=== PATIENT | male | born 1965 | race Caucasian/White ===

== ENCOUNTER 2017-05-20 07:45 | Day surgery (SDC) | payer BC, OTHER ==
[2017-05-16 14:29] VITALS: BMI 40.1
[2017-05-20] MEDS ORDERED: PROPOFOL 20 ML ONE ×2 (07:56)
[2017-05-20 10:22] VITALS: TEMP 98
[2017-05-20 10:24] VITALS: BP 110/65; PULSE 58
== END 2017-05-20 10:25 | disposition home or self-care (01) ==
LOC: FASU-ENDO 07:45 → EDBD 09:00 → FASU-ENDO 10:25
PROVIDERS: ATTEND Internal Medicine Gastroenterology
PROC: 0DJD8ZZ Inspection of Lower Intestinal Tract, Via Natural or Artificial Opening Endoscopic (ICD-10-PCS; principal; 2017-05-20 09:20)
DX: Z12.11 Encounter for screening for malignant neoplasm of colon (principal)